=== PATIENT | female | born 1960 | race African-American/Black ===

== ENCOUNTER 2019-10-18 20:07 | Inpatient (IN) | payer OTHER ==
[~2019-10-18] VITALS: Ht 160 cm; Wt 150.6 kg
[2019-10-18 20:29] VITALS: BP 157/100
[2019-10-18 22:10] LABS: URINE BILIRUBIN NEGATIVE (Negative); URINE BLOOD NEGATIVE (Negative); URINE CLARITY CLOUDY; URINE COLOR YELLOW; URINE GLUCOSE-RANDOM* NEGATIVE (Negative); URINE KETONES TRACE (Negative); URINE LEUKOCYTES-REFLEX NEGATIVE (Negative); URINE NITRITE-REFLEX NEGATIVE (Negative); URINE PROTEIN (DIPSTICK) NEGATIVE (Negative); URINE SPECIFIC GRAVITY >= 1.030 (1.005-1.035); URINE UROBILINOGEN 0.2 E.U./dl (0.2-1.0)
[2019-10-18 22:13] LABS: ABSOLUTE NEUTROPHILS 4.8 thou/uL (1.4-8.2); BASOPHILS 1.4 % (0.0-2.0); EOSINOPHILS 1.3 % (0.0-3.0); HEMATOCRIT 41.3 % (37.0-47.0); HEMOGLOBIN 13.4 gm/dL (12.0-15.0); LYMPHOCYTES 20.6 % (24.0-44.0); MCHC 32.3 g/dL (28.0-37.0); MCV 89.6 fL (80.0-100.0); MONOCYTES 6.4 % (1.0-8.0); PLATELET COUNT 354 thou/uL (150-400); POLYS 70.3 % (36.0-66.0); RBC 4.61 mil/uL (4.20-5.00); WBC 6.8 thou/uL (4.0-11.0)
[2019-10-18 22:23] LABS: AMP/METHAMP Negative (Negative); BARBITURATES Negative (Negative); BENZODIAZEPINES Negative (Negative); COCAINE Negative (Negative); METHADONE Negative (Negative); OPIATES Negative (Negative); PCP Negative (Negative)
[2019-10-18 22:23] LABS: ANION GAP 8 mmol/L (7-16); BUN 20 mg/dL (7-18); CALCIUM 9.5 mg/dL (8.5-10.1); CHLORIDE 106 mmol/L (98-107); CO2 27 mmol/L (21-32); GLUCOSE 122 mg/dL (74-106); POTASSIUM 3.6 mmol/L (3.5-5.1); SODIUM 141 mmol/L (136-145)
[2019-10-18 22:30] LABS: ALBUMIN 3.6 g/dL (3.4-5.0); SALICYLATE < 2.8 mg/dL (2.8-20.0); SGOT 14 U/L (15-37); SGPT 17 U/L (30-65); TOTAL BILIRUBIN 0.3 mg/dL (<0.1-1.0); TOTAL PROTEIN 7.7 g/dL (6.4-8.2)
[2019-10-18 23:59] VITALS: BP 132/93
[2019-10-19 01:16] VITALS: BP 136/89
[2019-10-19] MEDS ORDERED: LIPITOR10 MG PO (02:21)
[2019-10-19] MEDS ORDERED: CELEXA10 MG PO (02:24)
[2019-10-19] MEDS ORDERED: CARDIZEM SR 60M60 MG PO (02:27)
[2019-10-19] MEDS ORDERED: ELIQUIS5 MG PO (02:29)
[2019-10-19] MEDS ORDERED: FLONASE 0.05%50 MCG NASAL (02:31)
[2019-10-19] MEDS ORDERED: FUROSEMIDE 40 M40 MG PO (02:33)
[2019-10-19] MEDS ORDERED: TOPROL XL25 MG (02:37)
[2019-10-19] MEDS ORDERED: NORFLEX100 MG PO (02:39)
--- NOTE | 2019-10-19 03:55 | NUR ---
ADMITTED TO [facility]IT NEAR MIDNIGHT. SHE WAS SENT TO THE ER DUE TO BECOMING AGITATED WITH PEERS AT REHAB FACILITY. SHE STATES THEY WERE SAYING DEROGATORY THINGS TO HER. PRESENTS IRRITABLE, ANXIOUS. DENIES S/I, H/I. NO EVIDENCE OF PSYCHOSIS. THOUGHT PROCESSES ORGANIZED, LINEAR. STATES SHE IS IN REHAB FACILITY AWAITING SURGICAL REPAIR TO SHOULDER. AMBULATORY. DOES OWN ADL'S. CONTINENT. MEDICAL ISSUES INCLUDE SLEEP APNEA, COPD, HTN, HLD, RA, DEGENERATIVE DISEASE OF NERVOUS SYSTEM. UDS POSITIVE FOR MARIJUANA, BUT STATES THIS IS FROM USING CBD OIL.
[2019-10-19 08:16] VITALS: BP 134/84
[2019-10-19 10:10] VITALS: BP 134/84
--- NOTE | 2019-10-19 10:34 | NUR ---
ASSUMED CARE AT 0700 THIS MORNING. PT. AWAKE, ALERT, DRESSED AND ON THE UNIT. SHE IS TALKING QUIETLY WITH 2 PEERS. SHE IS A & [employer]. SHE TALKED TO THE DR., TO THE STUDENT AND TO THE SW. SHE IS WANDERING HOW LONG SHE WILL BE HERE. SHE DENIES SI/HI AND AVH. SHE ATTENDED MORNING GROUPS, ATE MEALS ON THE UNIT, TOOK HER MEDICATIONS WITHOUT DIFFICULTY. MARIANN HERE TO SEE PT. THIS MORNING. SHE HAS BEEN PLEASANT AND COOPERATIVE WITH STAFF/PEERS.
[2019-10-19 12:04] LABS: FOLIC ACID 9.8 ng/mL (8.6-58.9); TSH 2.541 uIU/mL (0.358-3.740)
[2019-10-19 20:00] VITALS: BP 164/83
--- NOTE | 2019-10-19 22:28 | NUR ---
Care assumed of patient at 1915: Patient resting in bed at start of shift. Patient woke up for nursing assessment. Calm, pleasant and cooperative. Alert and oriented x3. Patient states that she is not sure why she is at the hospital then chuckles. Denies anxiety or depression at this time. Presents with flat affect and was having difficulty staying awake during assessment. Patient denies SI/HI/AH/VH. No aggressive behaviors observed. Reported pain to her bilateral shoulders, Tramadol PRN provided. Patient cooperative with breathing treatments for RT. Patient took HS medication whole without difficulty. Declined HS snack. Patient continues to rest quietly in bed at this time.
[2019-10-20 08:00] VITALS: BP 113/85
--- NOTE | 2019-10-20 08:02 | NUR ---
PT UP WITH CANE THIS AM. PT HAS SOME SOB WITH EXERTION. PT STATED SHE HAS SOME PAIN TO RT SHOULDER OF 7 ON 1-10 SCALE AND PAIN OF 6 TO WRIST AND LOWER BACK AND KNEES. PT COOROPERATIVE WITH CARES. PT VERY PLEASANT. ADM TYLENOL 325MG 2 TABS FOR PAIN TO RT SHOULDER.
--- NOTE | 2019-10-20 08:30 | NUR ---
Assess due to high BMI 58.8=extreme class III obesity. Admit to [facility] for bipolar, depression. Hx sleep apnea, copd, htn, HLD. Regular diet, eating 100% of meals, and no excessive amounts. Low nutrition risk
[2019-10-20 08:49] VITALS: BP 113/85
--- NOTE | 2019-10-20 11:57 | NUR ---
Yesterday, [facility]'s [facility]. She spoke with a nurse named Angela who said she was new, but it was her understanding that pt' behavior on Wednesday was not typical. She said pt was verbally aggressive with another peer. She also decided to hop in a car with another resident to go to the store; this occurred after she threatened to drive herself and was advised by staff it was not safe due to pt's current medical needs. RENU had spoken to pt prior to this conversation and pt asked her to ask the facility about her phone. Pt said a nure named Silvestre was supposed to take her phone from her roommate and lock it up since pt was being taken to the hospital. SW asked Angela about the phone, and Angela said pt's nurse said he would not get involved in any disputes between pt and her roommate. She said pt should have taken the phone back before she left. RENU asked Angela if pt had enough time do so? Angela responded that pt had ample time do so, and was taking so much time that transportation was becoming irate with pt. SW asked Angela if the plan was for pt to return upon discharge. She said once pt is better, pt can come back. SW relayed the information about phone to pt. Pt became visibly upset and began crying that she will lose her pictures of her grandchildren and other information if she does not get her phone back. She asked SW for the phone number to the facility so she could call. SW gave pt that information. SW team will continue to follow pt during her stay.
--- NOTE | 2019-10-20 12:23 | NUR ---
ADM ULTRAM 50MG PO FOR PAIN TO RT SHOULDER OF 7 ON -.
[2019-10-20] MEDS ORDERED: TOPAMAX 25 MG T25 M1 PO (12:46)
[2019-10-20] MEDS ORDERED: TRAZODONE HCL50 MG PO (12:46)
[2019-10-20] MEDS ORDERED: PROTONIX 20 MG20 M1 PO (12:47)
[2019-10-20] MEDS ORDERED: K-DUR 20 MEQ T20 MEQ PO (12:47)
[2019-10-20] MEDS ORDERED: PULMICORT0.5 MG/21 INH (12:49)
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
--- NOTE | 2019-10-20 15:02 | NUR ---
PT LEAVING TODAY. PT VERBALY UNDERSTOOD D/C ORDERS. PT WAITING ON RIDE TO GO BACK TO [facility].
--- NOTE | 2019-10-20 15:18 | NUR ---
RENU DC Note In treatment meeting it was discussed that pt does not meet criteria to remain inpatient on the unit so she will need to be discharged today back to her rehab facility. RENU called [facility] and obtained admissions fax number of [phone]. RENU faxed updates including med list to that number. RENU called back and asked to speak to admissions and left a vm on [facility] . RENU again called back and asked to speak to a live person as this was an urgent matter and spoke with a nurse who asked if pt's meds have been adjusted; she stated that it is unfair for pt to return without that. RENU explained that pt does not meet criteria, so while the doctor may have made some adjustments, there is not enough justification for her to remain on the unit so she will need to return today. The nurse said ok and asked that a copy of her med list be sent to her. RENU said she will do so, and that she has also faxed a copy. 5200 RENU contacted [employer] to arrange a ride for pt. She was given the trip number of [id number] and told that there is a 3 hour window for pt to be picked up. 1430. RENU contacted [employer] to receive an update on pt's transportation and was told it would still be another 1.5 hours. RENU contacted [facility] and provided the update on transportation to [facility]. Jennifer said it doesn't matter when pt gets there because she does not need to do anything for a readmission. No other needs for team to address at this time. [facility] [address] [place] [address]
--- NOTE | 2019-10-20 15:41 | NUR ---
PT LEFT VIA W/C TO TRANSPORT CAB. PT WAS ASSISTED BY STAFF. CALLING [facility] WITH REPORT WITH NO ANSWER AT THIS TIME. FACILITY IS AWARE OF TRANSFER BACK TO FACILITY.
--- NOTE | 2019-10-20 15:55 | NUR ---
GAVE REPORT TO [facility].
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
--- NOTE | 2019-10-21 19:26 | D ---
[facility] [address] [place] [address] DISCHARGE SUMMARY Name: SHANNAN GOMEZ Room #: 517-A [facility] IN M.R.#: [id number] Admission: 10/18/19 Attend Phys: Vahe Chapman DO Discharge: 10/20/19 Date of : 62 Report #: [id number] THIS REPORT FOR: //name// CC: Vahe Chapman [facility] physician/PCP DATE OF SERVICE: 10/20/2019 PSYCHIATRIC DISCHARGE SUMMARY ATTENDING: Vahe Chapman DO SENIOR MANUFACTURING SUPERVISOR: Zechariah Conteh MD DISCHARGE DIAGNOSES: As follows: 1. Major depressive disorder. 2. Morbid obesity. Body mass index of 58.8. MEDICAL COMORBIDITIES: Include hypertension, COPD, obstructive sleep apnea, congestive heart failure and atrial fibrillation. DISCHARGE PLAN: The patient is discharging back to the [facility]. Diet should be heart healthy. ACTIVITY LEVEL: As tolerated. No alcohol, no illicit drugs. Psychiatric and medical care provided by both receiving facility. She has a PCP at [facility], there is no psychiatrist at the alf, thus psychiatrist and counseling services strongly recommended that she establish care at [facility]. DISCHARGE MEDICATIONS: As follows: Topiramate 25 mg p.o. daily for migraine headache, trazodone 50 mg p.o. at bedtime, potassium chloride 20 mEq p.o. daily, budesonide which is 0.5 mg inhalation twice per day. I think that the patient stated she had a Symbicort inhaler, which is a fine substitute for the Pulmicort. Pantoprazole 20 mg p.o. daily for GERD. Continue atorvastatin 10 mg p.o. at bedtime for hyperlipidemia, citalopram 40 mg p.o. daily for depression, diltiazem sustained release 120 mg p.o. daily for AFib, apixaban 5 mg p.o. b.i.d., anticoagulation for AFib, fluticasone 1 spray nasal twice per day, Lasix 40 mg p.o. b.i.d., metoprolol succinate 25 mg p.o. daily for rate control and Cardizem was for hypertension and AFib and Norflex 100 mg p.o. b.i.d., as scheduled. PERTINENT LABORATORY DATA: This admission, CBC within normal limits. Chemistries: BUN 28, glucose 122. AST 14, ALT 17, alkaline phosphatase 119. Vitamin B12 449, borderline low. Folate 9.8. TSH 2.541. Urine drug screen was [address] [address] DISCHARGE SUMMARY Name: SHANNAN GOMEZ Room #: 517-A [facility] IN [facility].#: [id number] Admission: 10/18/19 Attend Phys: Vahe Chapman DO Discharge: 10/20/19 Date of : 62 Report #: [id number] positive for marijuana, which I do not think the patientadmitted to with using with me. Serum alcohol less than 10, acetaminophen less than 2; however, she should not be using marijuana or other recreational drugs given her mood disorder. HOSPITAL COURSE: The patient was admitted to Geriatric Psychiatry Unit. The reasons for admission were her. The patient is unhappy with the care that she was receiving at [facility]. The alf made allegations of the patient being delusional, psychotic; however, during the course of admission, no overt psychosis was noted. She participated appropriately in howard interactions. She does have a significant history of homelessness dating back 8-9 months and the patient needs to work to get herself both situated with better coping skills and has the potential to return to at least supported independent living versus the nursing facility. CONDITION AT DISCHARGE: Stable. No SI. No HI. PHYSICAL EXAMINATION: VITAL SIGNS: On the day of discharge, temperature 37.1, pulse 90, respirations 16, BP 115/85, O2 sat 96%. MUSCULOSKELETAL: ambulates with signle point cane. Normal station. MENTAL STATUS EXAMINATION: This is a well-developed, morbidly obese black female, appearing stated age. Hair color dyed purple. Attention fair. Concentration fair. Speech is normal in rate, volume and tone. Thought process is linear and goal directed. Thought content focused on discharge at medical facility. No psychomotor agitation. No psychomotor retardation. Denied SI or HI. Denied hopelessness, helplessness. Denied homicidal intent or plan. Denied suicidal intent or plan. Memory not formally tested. Insight fair to limited. Judgment fair. Fund of knowledge, no greater than average. PROGNOSIS: For this patient is fair to guarded given the protracted homelessness; however, I do not find dementia at this point or overt psychosis, which wouldmake prognosis worse. <ELECTRONICALLY SIGNED> By: Vahe Chapman DO 10/21/19 1926 [id number] Vahe Chapman DO /nt
== END 2019-10-20 15:41 | DRG 885 ==
LOC: ER 20:07 → EROBS 23:06 → SBH 23:06
PROVIDERS: Physician Assistant; ADMIT Psychiatry & Neurology Psychiatry
DX: F33.2 Major depressive disorder, recurrent severe without psychotic features (principal); Z68.43 Body mass index [BMI] 50.0-59.9, adult; R45.1 Restlessness and agitation; F60.3 Borderline personality disorder; I50.9 Heart failure, unspecified; J44.9 Chronic obstructive pulmonary disease, unspecified; M79.7 Fibromyalgia; M06.9 Rheumatoid arthritis, unspecified; Z96.642 Presence of left artificial hip joint; E66.01 Morbid (severe) obesity due to excess calories; I11.0 Hypertensive heart disease with heart failure; G47.33 Obstructive sleep apnea (adult) (pediatric); I48.91 Unspecified atrial fibrillation; E78.5 Hyperlipidemia, unspecified; R26.81 Unsteadiness on feet; M19.90 Unspecified osteoarthritis, unspecified site; Z79.899 Other long term (current) drug therapy; Z79.01 Long term (current) use of anticoagulants; Z87.891 Personal history of nicotine dependence; Z59.0 Homelessness
CPT/HCPCS: 10880